=== PATIENT | female | born 1955 | race Caucasian/White ===

== ENCOUNTER 2016-11-18 07:18 | Day surgery (SDC) | payer OTHER ==
[2016-11-18] MEDS ORDERED: FLUMAZENIL 0.5 MG/5 ML MDV IVP ONE (07:43)
[2016-11-18] MEDS ORDERED: fentaNYL 100 MCG/2 ML INJ ONE (07:44)
[2016-11-18] MEDS ORDERED: NALOXONE HCL 0.4 MG/ML INJ ONE (07:44)
[2016-11-18] MEDS ORDERED: MIDAZOLAM 2 MG/2 ML VIAL ONE (07:44)
[2016-11-18] MEDS ORDERED: DEXMEDETOMIDINE HCL 200 MCG in NS 50 ML IV ONE (08:00)
[2016-11-18] MEDS ORDERED: CLINDAMYCIN 900 MG/DEXTROSE 50 ML IV ONE (08:00)
[2016-11-18 08:16] LABS: % IMMATURE GRANULYOCYTES 0.3 % (0.0-1.1); ABSOLUTE IMMATURE GRANULOCYTES 0.02 10^3/uL (0.00-0.10); ADD DIFF? NO; ADD MORPH? NO; ADD SCAN? NO; ATYPICAL LYMPHOCYTE FLAG 10 (0-99); FRAGMENT RBC FLAG 0 (0-99); HEMATOCRIT 37.4 % (38.0-47.0); HEMOGLOBIN 12.8 g/dL (12.6-16.3); LEFT SHIFT FLG 0 (0-99); LIPEMIA HEMOLYSIS FLAG 90 (0-99); MEAN CELL HEMOGLOBIN 30.6 pg (27.9-34.1); MEAN CELL HEMOGLOBIN CONCENTR. 34.2 g/dL (32.4-36.7); MEAN CELL VOLUME 89.5 fL (81.5-99.8); MEAN PLATELET VOLUME 11.5 fL (8.7-11.7); PLATELET CLUMPS FLAG 10 (0-99); PLATELET COUNT 202 10^3/uL (150-400); RED BLOOD CELL COUNT 4.18 10^6/uL (4.18-5.33); RED CELL DISTRIBUTION WIDTH 15.7 % (11.5-15.2)
[2016-11-18 08:25] LABS: INR 1.18 (0.83-1.16)
[2016-11-18 08:43] LABS: APTT > 250.0 SEC (23.0-38.0)
[2016-11-18] MEDS ORDERED: DEXAMETHASONE 10 MG/ML VIAL IVP ONE (08:45)
[2016-11-18] MEDS ORDERED: NS 1,000 ML IV SCH (08:45)
[2016-11-18] MEDS ORDERED: ONDANSETRON 4 MG/2 ML VIAL ONE (08:48)
[2016-11-18] MEDS ORDERED: DEXAMETHASONE 10 MG/ML VIAL ONE (08:48)
[2016-11-18 09:40] LABS: INR 1.07 (0.83-1.16); PROTIME(PATIENT) 13.8 SEC (12.0-15.0)
[2016-11-18 09:41] LABS: APTT 24.3 SEC (23.0-38.0)
[2016-11-18] MEDS ORDERED: LIDOCAINE 1% 30 ML SDV ONE (11:39)
[2016-11-18] MEDS ORDERED: BUPIVACAINE 0.5% 30 ML SDV ONE (11:39)
[2016-11-18] MEDS ORDERED: HYDROCODONE/APAP 5/325 TAB PO PRN (12:50)
--- NOTE | 2016-11-18 19:51 | IR ---
Percutaneous core needle biopsy of L1 Percutaneous radiofrequency ablation of right side of L1 vertebral body Vertebral augmentation/kyphoplasty of L1. History: Metastatic breast cancer, with eccentric rightward back pain. Metastasis of L1 demonstrated on recent MRI. Consent: Risks and benefits of the procedure were discussed in detail, and informed consent was obta ined. The patient and her accepted I well and just got dropped at the area redoing the ballo on no iodixanol, mostly on the perforation <Canna superficial good idea. I think that K terminates CM by Risks of lack of therapeutic benefit, internal bleeding, infection, nerve damage, and embolizatio n of cement. Medications: Intravenous conscious sedation and analgesia were given under my supervision. Vital sign s, pulse oximetry, and electrocardiogram were monitored. The patient received 2 milligrams of Versed and 150 micrograms of fentanyl intravenously. Prophylactic medications included 10 mg of dexamethason e, 4 mg of Zofran, and 900 mg of clindamycin intravenously. Intravenous Dexmedetomidine was titrated for effect using continuous intravenous infusion up to a rate of 0.6 mcg/kg/h. Start time: 1030. End time: 1219. Fluoroscopy time in minutes: 1.1 AP, 1.5 lateral. Estimated exposure in milligray: 272. Technique: With the patient prone, the upper back was prepped and draped in sterile fashion. All [place] ents of maximal sterile barrier technique were used, including cap, mask, sterile gown, sterile glove s, large sterile sheath, hand hygiene, and 2% chlorhexidine for cutaneous antisepsis. 1% Xylocaine wa s used for local anesthetic in the superficial soft tissues. 22-gauge spinal needle was inserted to t he posterior periosteal surface of the right side of the lamina of L1, overlying the pedicle. A 10-ga uge bone needle was inserted. With biplane fluoroscopic guidance, the tip of the needle was passed do wn the right pedicle into the posterior margin of the vertebral body on the right side, mid level. Co axial 13-gauge core needle biopsy was performed, and generous specimen was expelled into formalin, ta muna later to the Laboratory for histology. Straight osteotome and reticulating osteotome were used fo r cavity creation. Coaxial radiofrequency ablation device was deployed to the inferior half of the ve rtebral body just to the left of midline and then to the right inferior corner. The ablation device w as also deployed in the upper half of the right side of the vertebral body. At each of these three fo ci, radiofrequency ablation was performed using target temperature of greater than 50 degrees Celsius at 2 thermocouples of the device. The coaxial needle was inserted for cement deposition after prepar ing sterile methylmethacrylate with barium powder for opacification, in the usual fashion. 1.6 mL of cement were deployed and biplane spot images were taken. Needle was removed and additional biplane sp ot images were taken. The patient tolerated the procedure well and was returned to the Postprocedural Recovery Areas in stable condition. Findings: Pathologic fracture affects the right side of the vertebral body, well covered by the radi ofrequency ablation tool. Good excursion of radiofrequency ablation needle. Opaque cement is found wi thin the right side of the vertebral body, but also passes inferiorly through eroded inferior cortica l endplate to reach the center of the interspace at L1-L2. There is no embolization of cement into th e spinal canal. Impressions: 1. Pathologic compression fracture of right side of vertebral body of L1. 2. Needle directed radiofrequency ablation of right side of vertebral body of L1. 3. Vertebral augmentation/kyphoplasty of right side of L1. - - - - - - - - - - - - - - - - - - - - - - - - - - - - - (PQRS measures: Current medications were listed in the medical record, including all known prescripti ons, [id number] medications, herbal medications, and nutritional supplements. Tobacco use: None . Prophylactic antibiotic:Clindamycin 900 mg, given intravenously 2 hours prior to the procedure, the n discontinued. VTE prophylaxis: Unnecessary.)
== END 2016-11-18 15:30 | disposition home or self-care (01) ==
LOC: FIMAGING 07:18
PROVIDERS: ATTEND Internal Medicine Hematology & Oncology
PROC: 015B3ZZ Destruction of Lumbar Nerve, Percutaneous Approach (ICD-10-PCS; 2016-11-18)
PROC: 0QU03JZ Supplement Lumbar Vertebra with Synthetic Substitute, Percutaneous Approach (ICD-10-PCS; 2016-11-18)
PROC: 0QB03ZX Excision of Lumbar Vertebra, Percutaneous Approach, Diagnostic (ICD-10-PCS; principal; 2016-11-18 11:14)
DX: C79.51 Secondary malignant neoplasm of bone (principal); M84.68XA Pathological fracture in other disease, other site, initial encounter for fracture; Z85.3 Personal history of malignant neoplasm of breast
CPT/HCPCS: J2250; J2310; J2405; J3010

== ENCOUNTER → 2017-04-17 | Outpatient (CLI) | payer OTHER ==
[~2017-04-17] MED LIST: GADOBUTROL 10 ML VIAL IVP ONE
== END ==
LOC: FIMAGING 08:00
PROVIDERS: ATTEND Internal Medicine Hematology & Oncology
DX: Z86.011 Personal history of benign neoplasm of the brain (principal); C50.919 Malignant neoplasm of unspecified site of unspecified female breast
CPT/HCPCS: 70553; A9585

== ENCOUNTER → 2017-10-29 | Outpatient (CLI) | payer OTHER | LOC: FIMAGING 09:10 | PROVIDERS: ATTEND Nurse Practitioner | DX: C79.31 Secondary malignant neoplasm of brain (principal); Z85.3 Personal history of malignant neoplasm of breast | CPT/HCPCS: 70553; A9585 ==